=== PATIENT | male | born 1975 | race Hispanic/Latino ===

== ENCOUNTER 2017-08-18 21:38 | Emergency (ER) | payer MEDICARE ==
[2017-08-18 23:04] LABS: APPEARANCE,URINE Cloudy (CLEAR); BILIRUBIN,URINE Negative (NEGATIVE); COLOR,URINE Yellow (YELLOW); GLUCOSE, URINE (UA) Negative (NEGATIVE); KETONES,URINE Negative (NEGATIVE); LEUKOCYTE ESTERASE ,URINE Large (NEGATIVE); NITRATE,URINE Negative (NEGATIVE); OCCULT BLOOD,URINE Large (NEGATIVE); PROTEIN,URINE Trace (NEGATIVE); UROBILINOGEN,URINE 0.2 mg/dL (0.2-1.0)
[2017-08-18 23:15] LABS: BACTERIA,URINE Moderate /HPF (None Seen); MUCUS,URINE Moderate LPF (None Seen); RBC,URINE 26-50 /HPF (0-1); SQUAMOUS EPITHELIAL CELL,UR Few /HPF (0-2); WBC,URINE TNTC /HPF (0-1)
[2017-08-19] MEDS ORDERED: LEVOFLOXACIN 500 MG TABLET ONE (00:16)
== END 2017-08-19 00:23 | disposition home or self-care (01) ==
LOC: EDH 21:38
DX: N39.0 Urinary tract infection, site not specified (principal); R33.9 Retention of urine, unspecified; Q90.9 Down syndrome, unspecified
CPT/HCPCS: 81001; 87088; 87186

== ENCOUNTER 2017-10-17 10:47 | Emergency (ER) | payer MEDICARE ==
[2017-10-17 11:40] LABS: APPEARANCE,URINE Turbid (CLEAR); BILIRUBIN,URINE Negative (NEGATIVE); COLOR,URINE Dark Yellow (YELLOW); GLUCOSE, URINE (UA) Negative (NEGATIVE); KETONES,URINE Negative (NEGATIVE); LEUKOCYTE ESTERASE ,URINE Large (NEGATIVE); NITRATE,URINE Negative (NEGATIVE); OCCULT BLOOD,URINE Large (NEGATIVE); PROTEIN,URINE POS 2+ (NEGATIVE)
[2017-10-17 11:56] LABS: BACTERIA,URINE Many /HPF (None Seen); SQUAMOUS EPITHELIAL CELL,UR Rare /HPF (0-2); WBC,URINE 51-100 /HPF (0-1)
[2017-10-17] MEDS ORDERED: CEFTRIAXONE SODIUM 1 GM ONE (12:07)
[2017-10-17] MEDS ORDERED: LIDOCAINE HCL-MPF 1% 2ML VIAL ONE (12:07)
== END 2017-10-17 13:38 | disposition home or self-care (01) ==
LOC: EDH 10:47
DX: R33.9 Retention of urine, unspecified (principal); N39.0 Urinary tract infection, site not specified; Q90.9 Down syndrome, unspecified; Z90.49 Acquired absence of other specified parts of digestive tract; Z98.890 Other specified postprocedural states
CPT/HCPCS: 81001; 96372; 99283; J0696; J3490

== ENCOUNTER 2018-04-13 06:35 | Emergency (ER) | payer MEDICARE ==
[2018-04-13 07:52] LABS: HEMATOCRIT 42.6 % (42-54); RED BLOOD CELL COUNT(AUTO) 4.25 MIL/uL (4.50-6.20); WHITE BLOOD COUNT (AUTO) 8.6 K/uL (4.8-10.8)
[2018-04-13 07:53] LABS: EOSINOPHILS % (AUTO) 1.7 % (0.0-8.0); LYMPHOCYTES % (AUTO) 38.3 % (21.0-51.0); MEAN CORPUSCULAR HGB CONC 34.9 g/dL (32.0-36.0); MEAN CORPUSCULAR VOLUME 100.2 fL (79-99); MONOCYTES % (AUTO) 6.4 % (3.0-13.0); NEUTROPHILS % (AUTO) 52.6 % (40.0-77.0); PLATELET COUNT (AUTO) 278 K/uL (130-400); RED CELL DISTRIBUTION WIDTH 13.9 % (11.0-15.5)
[2018-04-13 08:05] LABS: CREATININE 0.8 mg/dL (0.5-1.5); POTASSIUM 3.4 mmol/L (3.5-5.1)
[2018-04-13 08:16] LABS: APPEARANCE,URINE CLEAR (CLEAR); BILIRUBIN,URINE NEGATIVE (NEGATIVE); COLOR,URINE YELLOW (YELLOW); GLUCOSE, URINE (UA) NEGATIVE (NEGATIVE); KETONES,URINE NEGATIVE (NEGATIVE); LEUKOCYTE ESTERASE ,URINE SMALL (NEGATIVE); NITRATE,URINE NEGATIVE (NEGATIVE); OCCULT BLOOD,URINE SMALL (NEGATIVE); PROTEIN,URINE NEGATIVE (NEGATIVE); UROBILINOGEN,URINE 0.2 mg/dL (0.2-1.0)
[2018-04-13 08:20] LABS: BACTERIA,URINE Rare /HPF (None Seen); SQUAMOUS EPITHELIAL CELL,UR Few /HPF (0-2)
[2018-04-13] MEDS ORDERED: CEFTRIAXONE SODIUM 1 GM ONE (10:37)
[2018-04-13] MEDS ORDERED: SODIUM CHLORIDE 0.9% 50 ML IV ONE (10:38)
== END 2018-04-13 11:18 | disposition home or self-care (01) ==
LOC: EDH 06:35
DX: N39.0 Urinary tract infection, site not specified (principal); R33.9 Retention of urine, unspecified; Z90.49 Acquired absence of other specified parts of digestive tract
CPT/HCPCS: 36415; 51702; 80048; 81001; 85025; 96374; 99284; J0696

== ENCOUNTER 2018-05-21 10:03 | Observation (INO) | payer MEDICARE ==
[~2018-05-21] VITALS: Ht 147.3 cm; Wt 79.1 kg
[2018-05-21 12:13] LABS: BASOPHILS % (AUTO) 0.6 % (0.0-5.0); EOSINOPHILS % (AUTO) 1.3 % (0.0-8.0); HEMATOCRIT 46.5 % (42-54); LYMPHOCYTES % (AUTO) 21.8 % (21.0-51.0); MEAN CORPUSCULAR HGB CONC 33.9 g/dL (32.0-36.0); MEAN CORPUSCULAR VOLUME 100.1 fL (79-99); MONOCYTES % (AUTO) 5.6 % (3.0-13.0); NEUTROPHILS % (AUTO) 70.7 % (40.0-77.0); NUCLEATED RED BLOOD CELLS 0.2 % (0.0-0.19); PLATELET COUNT (AUTO) 305 K/uL (130-400); RED BLOOD CELL COUNT(AUTO) 4.65 MIL/uL (4.50-6.20); RED CELL DISTRIBUTION WIDTH 14.2 % (11.0-15.5); WHITE BLOOD COUNT (AUTO) 9.8 K/uL (4.8-10.8)
[2018-05-21 12:24] LABS: CREATININE 0.8 mg/dL (0.5-1.5); POTASSIUM 3.3 mmol/L (3.5-5.1)
[2018-05-21 12:29] LABS: ALBUMIN 3.5 g/dL (3.5-5.0); BILIRUBIN,TOTAL 0.5 mg/dL (0.2-1.0); TOTAL PROTEIN, SERUM 9.2 g/dL (6.0-8.3)
[2018-05-21] MEDS ORDERED: 1/2 NORMAL SALINE 1,000 ML IV SCH (12:30)
[2018-05-21] MEDS ORDERED: 1/2 NORMAL SALINE 1,000 ML IV ONE (14:03)
--- NOTE | 2018-05-21 14:20 | NUR ---
REPORT RECEIVED FROM SG REAVES (ED). PATIENT ADMITTED DUE TO C/O ABD PAIN AND URINARY RETENTION. MULTIPLE ATTEMPTS TO INSERT 8FR THORPE CATHETER AND WERE UNSUCCESSFUL. PER JEAN PAUL, PATIENT VOIDED IN BRIEF AFTER CT SCAN. DR. ABRAHAM AWARE OF CONSULT. PATIENT STABLE AT THIS TIME.
[2018-05-21 14:45] VITALS: BP 120/83
[2018-05-21 19:00] VITALS: BP 127/83
[2018-05-21] MEDS: PHENAZOPYRIDINE HCL 200 MG TABLET PO SCH (22:00)
[2018-05-21] MEDS ORDERED: PHENAZOPYRIDINE HCL 200 MG TABLET ONE (23:07)
[2018-05-22] VITALS (25 sets, daily range): BP systolic 83–116; BP diastolic 42–74
[2018-05-22] MEDS: PHENAZOPYRIDINE HCL 200 MG TABLET PO SCH ×3 (06:00→21:54)
[2018-05-22] MEDS ORDERED: IOHEXOL-350 50ML VIAL IV ONE (10:21)
--- NOTE | 2018-05-22 10:35 | NUR ---
POST-VOID RESIDUAL Urinated 200mL of clear, yellow urine and did bladder scan; post-void residual was 437mL.
--- NOTE | 2018-05-22 11:40 | NUR ---
TO OR Taken to OR for cystoscopy.
[2018-05-22] MEDS ORDERED: LACTATED RINGERS 1000ML 1,000 ML IV ONE (11:46)
[2018-05-22] MEDS: CEFAZOLIN SODIUM 1 GM VIAL IVP PRN ×2 (11:50→12:10)
[2018-05-22] MEDS ORDERED: ROCURONIUM 10MG/1ML SYR 10 MG/ML ML ONE (11:58)
[2018-05-22] MEDS ORDERED: FENTANYL CITRATE PF 50 MCG/1 ML 2ML VIAL ONE (11:58)
[2018-05-22] MEDS ORDERED: PROPOFOL 10 MG/ML 20ML VIAL IV ONE ×2 (11:58→12:28)
[2018-05-22] MEDS ORDERED: LIDOCAINE PF 2% 5ML ABBOJECT ONE (11:58)
[2018-05-22] MEDS ORDERED: MIDAZOLAM HCL 1 MG/ML 2ML VIAL ONE (11:58)
[2018-05-22] MEDS ORDERED: EPHEDRINE SULFATE 50 MG/ML AMPULE ONE (12:20)
[2018-05-22] MEDS ORDERED: MEPERIDINE-PF 25 MG/ML SYG ONE (13:12)
[2018-05-22] MEDS ORDERED: CEFAZOLIN SODIUM 1 GM VIAL IVP SCH (17:00)
[2018-05-22] MEDS ORDERED: OXYBUTYNIN 5 MG TAB.SR.24H PO PRN (17:00)
[2018-05-22] MEDS ORDERED: ACETAMINOPHEN-CODEINE 300/30MG TAB PO PRN (17:15)
[2018-05-22] MEDS ORDERED: SODIUM CHLORIDE 0.9% 1000ML 1,000 ML IV SCH (17:15)
[2018-05-22] MEDS ORDERED: ACETAMINOPHEN 325 MG TAB PO PRN (17:15)
[2018-05-22] MEDS ORDERED: NEOMY SULF/BACITRA/POLYMYXIN B 1 EACH PACKET TP ONE ×3 (18:00→22:00)
--- NOTE | 2018-05-22 18:00 | NUR ---
DISCHARGE Paged Dr. Garrett and informed him that Dr. Miller had ordered a follow up consult after discharge and if he would consider this patient for discharge. Dr. Garrett stated to ask Dr. Miller if patient was OK to discharge from urologist's standpoint, and if that was the case, then, yes, patient could be discharged. Paged Dr. Miller to ask him if patient was OK to be discharged from his point of view. He stated that simply because he wrote a follow up order he did not mean he was discharging the patient. Dr. Garrett was notified that Dr. Miller did not OK D/C from his standpoint.
[2018-05-22] MEDS: CEFAZOLIN SODIUM 1 GM VIAL IVP SCH (21:54)
[2018-05-23 03:53] VITALS: BP 84/57
[2018-05-23] MEDS: PHENAZOPYRIDINE HCL 200 MG TABLET PO SCH ×2 (05:26→13:08)
[2018-05-23] MEDS: CEFAZOLIN SODIUM 1 GM VIAL IVP SCH ×2 (05:26→13:08)
[2018-05-23 07:57] VITALS: BP 108/59
[2018-05-23 11:38] VITALS: BP 111/54
--- NOTE | 2018-05-23 13:19 | NUR ---
UROLOGIST Dr. Miller was paged at 1300 to ask him about how many doses of ancef he wants for patient; patient has received total of 3 here and 1 on-call to OR.m Pending for Dr. Miller to call back.
== END 2018-05-23 15:00 | disposition home or self-care (01) ==
LOC: EDH 10:03 → EDHIP 12:19 → 3DH 14:27
PROVIDERS: ADMIT Internal Medicine; ATTEND Internal Medicine
DX: N35.919 Unspecified urethral stricture, male, unspecified site (principal); N13.30 Unspecified hydronephrosis; E66.9 Obesity, unspecified; N48.0 Leukoplakia of penis; Q90.9 Down syndrome, unspecified
CPT/HCPCS: 36415; 52341; 74176; 74430; 80053; 85025; 87088; 96374; 96376; 99284; A4218 ×3; A4344 ×2; A4354; A4358; A4649; A4930; A5113; A9272; C1758; C1769; G0378 ×51; J0690 ×4; J2001; J2175; J2250; J2704 ×2; J3010; J3490; J7120; Q9967

== ENCOUNTER 2024-09-17 12:46 | Emergency (ER) | payer MEDICARE ==
[~2024-09-17] VITALS: Ht 152.4 cm; Wt 72.6 kg
[2024-09-17 13:27] LABS: BASOPHILS # (AUTO) 0.11 K/uL (0.00-0.20); BASOPHILS % (AUTO) 1.4 % (0.0-5.0); EOSINOPHILS # (AUTO) 0.05 K/uL (0.00-0.70); EOSINOPHILS % (AUTO) 0.6 % (0.0-8.0); HEMATOCRIT 43.7 % (42-54); IMMATURE GRANULOCYTE ABSOLUTE 0.02 K/uL (0-1); LYMPHOCYTES # (AUTO) 2.6 K/uL (1.0-4.8); LYMPHOCYTES % (AUTO) 31.6 % (21.0-51.0); MEAN CORPUSCULAR HEMOGLOBIN 35.5 pg (27.0-33.0); MEAN CORPUSCULAR HGB CONC 35.7 g/dL (32.0-36.0); MEAN CORPUSCULAR VOLUME 99.3 fL (79-99); MONOCYTES # (AUTO) 0.5 K/uL (0.1-1.0); MONOCYTES % (AUTO) 5.9 % (3.0-13.0); NEUTROPHILS # (AUTO) 4.9 K/uL (1.8-7.7); NEUTROPHILS % (AUTO) 60.3 % (40.0-77.0); PLATELET COUNT (AUTO) 305 K/uL (130-400); RED CELL DISTRIBUTION WIDTH 13.7 % (11.0-15.5); WHITE BLOOD COUNT (AUTO) 8.1 K/uL (4.8-10.8)
--- NOTE | 2024-09-17 13:44 | NUR ---
BLADDER SCAN SHOWS 371 MLS
[2024-09-17 14:10] LABS: CREATININE 0.9 mg/dL (0.5-1.3); POTASSIUM 3.6 mmol/L (3.5-5.1)
--- NOTE | 2024-09-17 14:45 | ERN ---
General Chief Complaint: Urinary Frequency Stated Complaint: HAVING TROUBLE URINATING Time Seen by MD: 12:47 History of Present Illness Initial Comments 1-year-old male who presents for urinary retention. Patient was history of down syndrome. According to family he was has a history of urinary retention in the past, unclear etiology although he was seen Dr. Miller as an outpatient. Last urination was yesterday. Patient does have some discomfort to the suprapubic area. No lesions. No fevers. No vomiting. No other symptoms. Allergies: Coded Allergies: No Known Drug Allergies (Verified Allergy, Unknown, 05/21/18) Home Meds Active Scripts Clotrimazole (Clotrimazole) 1 % Cream..g., 1 APPL TP BID for 7 Days, #15 GM 0 Refills apply to affected area(s) Prov:CHANTEL JUNE DO 09/17/24 Tamsulosin HCl (Flomax) 0.4 Mg Cap.er.24h, 0.4 MG PO DAILY for 30 Days, #30 CAPSULE. Prov:CHANTEL JUNE DO 09/17/24 Cefpodoxime Proxetil (Cefpodoxime Proxetil) 200 Mg Tablet, 1 TAB PO BID for 7 Days, #14 TAB 0 Refills Prov:CHANTEL JUNE DO 09/17/24 Past Medical History Past Medical History: Arthritis, Heart Disease Medical History Other: DOWN SYNDROME Past Surgical History: None ROS Dictation CONSTITUTIONAL: No chills, no fever, no weakness, no diaphoresis, no malaise. HEAD/FACE: No signs of trauma. EENT: No eye pain, no blurred vision, no tearing, no double vision, no ear pain, no ear discharge, no nose pain, no nasal congestion, no throat pain, no throat swelling, no mouth pain. RESPIRATORY: No cough, no orthopnea, no SOB, no stridor, no wheezing. CARDIOVASCULAR: No chest pain, no edema, no palpitations, no syncope. GASTROINTESTINAL/ABDOMINAL: No abdominal pain, no constipation, no diarrhea, no nausea, no vomiting. GENITOURINARY: Urinary retention MUSCULOSKELETAL: No back pain, no gout, no joint pain, no joint swelling, no muscle pain, no muscle stiffness, no neck pain. INTEGUMENTARY: No change in color, no change in hair/nails, no dryness, no lesion, no lumps, no rash. NEUROLOGICAL/PSYCH: No anxiety, not depressed, no emotional problem, no headache, no numbness, no pre-existing deficit, no history of seizures, no tremors, no weakness. HEMATOLOGIC/LYMPHATIC: Not anemic, no history of blood clots, no apparent bleeding, no bruising, glands not swollen. All Systems Negative, Except as Noted. Physical Exam Physical Exam Dictation VITAL SIGNS: Reviewed. GENERAL APPEARANCE: Alert, oriented x3, mild distress due to needing to use the restroom HEAD AND FACE: Non-traumatic. EYES: PERRL, pink conjunctivas, eyelid no trauma, anterior chamber clear. EARS: Pinnas intact and no signs of trauma or erythema. Ear canals clear and no discharge. TMs no erythema. NOSE: No discharge, no bleeding. OROPHARYNX: Mouth normal, teeth no caries, tongue pink. Pharynx clear, no erythema. Tonsils no exudates, no abscesses noted. Mucous membrane moist. NECK: Supple, non-tender, no thyromegaly, no masses, no JVD, no bruits. BREAST: Deferred. CHEST: No tenderness, no crepitus, no paradoxical movement, no retractions. LUNGS: Clear, well-ventilated, symmetric, no rales, no wheezing, no rhonchi, no stridor, good breath sounds bilaterally. HEART: Regular rate, regular rhythm, no murmur, no gallops. VASCULAR: No peripheral edema. ABDOMEN: Soft, positive bowel sounds, nondistended, no guarding, nontender, no rebound, no masses no hepatomegaly, no splenomegaly, no Sabillon's sign, no hernias. RECTAL: Deferred. GENITAL: Deferred. NEUROLOGICAL: Normal speech, gross motor function intact, gross sensory function intact. MUSCULOSKELETAL: Neck nontender, full range of motion, back nontender, full range of motion. EXTREMITIES: Nontender, full range of motion. SKIN: Color pink, dry, no turgor, no rash, no lacerations, no abrasions, no contusions. LYMPHATICS: Deferred. Results Laboratory and Microbiology Lab and Micro Result Laboratory Tests Test 09/17/24 13:21 09/17/24 15:10 White Blood Count 8.1 K/uL (4.8-10.8) Red Blood Count 4.40 MIL/uL (4.50-6.20) L Hemoglobin 15.6 g/dL (14.0-18.0) Hematocrit 43.7 % (42-54) Mean Corpuscular Volume 99.3 fL (79-99) H Mean Corpuscular Hemoglobin 35.5 pg (27.0-33.0) H Mean Corpuscular Hemoglobin Concent 35.7 g/dL (32.0-36.0) Red Cell Distribution Width 13.7 % (11.0-15.5) Platelet Count 305 K/uL (130-400) Mean Platelet Volume 9.8 fL (7.5-10.5) Immature Granulocyte % (Auto) 0.2 % (0-1) Neutrophils (%) (Auto) 60.3 % (40.0-77.0) Lymphocytes (%) (Auto) 31.6 % (21.0-51.0) Monocytes (%) (Auto) 5.9 % (3.0-13.0) Eosinophils (%) (Auto) 0.6 % (0.0-8.0) Basophils (%) (Auto) 1.4 % (0.0-5.0) Neutrophils # (Auto) 4.9 K/uL (1.8-7.7) Lymphocytes # (Auto) 2.6 K/uL (1.0-4.8) Monocytes # (Auto) 0.5 K/uL (0.1-1.0) Eosinophils # (Auto) 0.05 K/uL (0.00-0.70) Basophils # (Auto) 0.11 K/uL (0.00-0.20) Absolute Immature Granulocyte (auto 0.02 K/uL (0-1) Nucleated Red Blood Cells 0.0 % (0.0-0.19) Sodium Level 136 mmol/L (136-145) Potassium Level 3.6 mmol/L (3.5-5.1) Chloride Level 100 mmol/L (101-111) L Carbon Dioxide Level 29 mmol/L (21-32) Blood Urea Nitrogen 14 mg/dL (7-18) Creatinine 0.9 mg/dL (0.5-1.3) Glomerular Filtration Rate Calc 104 mL/min (>90) Random Glucose 115 mg/dL (70-105) H Total Calcium 8.8 mg/dL (8.5-10.1) Urine Color LIGHT-YELLOW (YELLOW) Urine Appearance CLOUDY (CLEAR) H Urine pH 6.5 (5.0-8.0) Urine Specific [place] 1.011 (1.001-1.031) Urine Protein 30 mg/dL (NEGATIVE) H Urine Glucose (UA) NEGATIVE mg/dL (NEGATIVE) Urine Ketones NEGATIVE mg/dL (NEGATIVE) Urine Occult Blood SMALL (NEGATIVE) H Urine Nitrate 2+ (NEGATIVE) H Urine Bilirubin NEGATIVE mg/dL (NEGATIVE) Urine Urobilinogen 0.2 mg/dL (0.2-1.0) Urine Leukocyte Esterase 500 Brianna/uL (NEGATIVE) H Urine RBC 6-10 /HPF (0-1) H Urine WBC TNTC /HPF (0-1) H Urine Bacteria RARE /HPF (None Seen) Urine Yeast RARE /HPF (None Seen) MDM CC: Urinary retention Historian: Patient Comorbidities: History of urinary retention unknown if BPH versus stricture Limitations by social determinants of health: None Differential diagnosis: BPH, stricture, urinary retention, CINDY, electrolyte abnormalities, UTI, other. Initial presentation shows heart rate of 110 otherwise unremarkable vital signs. Patient was clinically uncomfortable due to the retention. He had tried to urinate multiple times but only dribbles come out. No fevers or systemic symptoms. Low suspicion for any life threats Nurse performed a bedside bladder scan patient was has around 400 mL of urine. Granados catheter was placed. According to the nurses they were only able to get a small eight [place] without a balloon. It was taped and the patient drained about 500 cc of urine. He reports he immediately relief. Labs (independently ordered and interpreted by me ): CBC is normal. Urinalysis shows nitrites occult blood leuk esterase. Consistent with infection. Chemistries unremarkable including renal function. Patient was improvement of symptoms. No signs of SIRS or sepsis. No CINDY. Treatment in ED: Granados catheter placement, oral cefdinir. Plan: We will be the Granados catheter in place recommend PCP or urologic follow up. Due to the UTI we will start on cefpodoxime. We will also start on tamsulo sin. We will also give clotrimazole cream. The distal tip of the penis since there may be some irritation there. ED Course Orders Procedure Category Date Status Time Cbc With Differential LAB 09/17/24 Complete 12:47 Basic Metabolic Panel LAB 09/17/24 Complete 12:47 Urinalysis Profile LAB 09/17/24 Complete 12:47 *Nursing CPOE 09/17/24 Transmitted Communication: 13:24 Nurse Driven Granados NIR 09/17/24 Complete Removal Pro 14:26 *Nursing CPOE 09/17/24 Transmitted Communication: 14:26 Culture Urine BRYAN 09/17/24 Complete 15:38 Cefdinir (Cefdinir) PHA 09/17/24 Complete 17:30 Cefdinir (Cefdinir) PHA 09/17/24 Complete 18:00 Current Medications Medications (Trade) Dose Ordered Sig/Ifeoma Route PRN Reason Start Time Stop Time Status Last Admin Dose Admin Cefdinir (Cefdinir) 250 mg ONCE PO 09/17/24 17:30 09/17/24 17:30 DC Cefdinir (Cefdinir) 250MG=5ML ONCE PO 09/17/24 18:00 09/17/24 17:51 DC 09/17/24 17:42 Vital Signs Date Time Temp Pulse Resp B/P (MAP) Pulse Ox O2 Delivery O2 Flow Rate FiO2 09/17/24 17:48 98.4 92 18 132/74 96 Room Air* 0 21 09/17/24 13:00 98.4 110 16 140/83 96 Room Air 0 DX & DISP Disposition: Discharge Departure Impression: Primary Impression: Urinary retention Additional Impression: UTI (urinary tract infection) Condition: Stable Scripts Clotrimazole (Clotrimazole) 1 % Cream..g. 1 APPL TP BID for 7 Days, #15 GM 0 Refills apply to affected area(s) Prov: CHANTEL JUNE DO 09/17/24 Tamsulosin HCl (Flomax) 0.4 Mg Cap.er.24h 0.4 MG PO DAILY for 30 Days, #30 CAPSULE. Prov: CHANTEL JUNE DO 09/17/24 Cefpodoxime Proxetil (Cefpodoxime Proxetil) 200 Mg Tablet 1 TAB PO BID for 7 Days, #14 TAB 0 Refills Prov: CHANTEL JUNE DO 09/17/24 Additional Instructions: Daniel has bacteria in his urine. He also had urinary retention. As we discussed, he has a 8F Granados placed. This should stay in place for at least 1-2 weeks while he takes the medicines that I have prescribed. I have prescribed cefpodoxime, which is an antibiotic. Please take as pres cribed. I have prescribed clotrimazole cream. He should apply this two or 3 times a day to the distal tip of his penis around the Granados catheter. I have also prescribed tamsulosin, which is for enlarged prostate. He should take this every night for the next 2-4 weeks. As we discussed, this may not be the best fitting Granados catheter. He may need replacement. Please return to the emergency department if he needs Granados replacement. He should follow up with his primary doctor for follow up. He may also need to see a urologist. Referrals: ROEL BUSH MD (PCP) CHANTEL JUNE DO September 17, 2024 14:45
[2024-09-17 15:21] LABS: APPEARANCE,URINE CLOUDY (CLEAR); BILIRUBIN,URINE NEGATIVE (NEGATIVE); COLOR,URINE LIGHT-YELLOW (YELLOW); GLUCOSE, URINE (UA) NEGATIVE (NEGATIVE); KETONES,URINE NEGATIVE (NEGATIVE); LEUKOCYTE ESTERASE ,URINE 500 Leu/uL (NEGATIVE); NITRATE,URINE 2+ (NEGATIVE); OCCULT BLOOD,URINE SMALL (NEGATIVE); PH,URINE 6.5 (5.0-8.0); PROTEIN,URINE 30 mg/dL (NEGATIVE); UROBILINOGEN,URINE 0.2 mg/dL (0.2-1.0)
--- NOTE | 2024-09-17 15:22 | NUR ---
525 MLS OUT W/ IN/OUT THORPE INSERTION, DR JUNE AWARE
[2024-09-17 15:38] LABS: ADD UA MICROSCOPIC YES
[2024-09-17 15:40] LABS: BACTERIA,URINE RARE /HPF (None Seen); MUCUS,URINE RARE LPF (None Seen); WBC,URINE TNTC /HPF (0-1); YEAST,URINE BUDDING RARE /HPF (None Seen)
--- NOTE | 2024-09-17 16:14 | NUR ---
IN/OUT CATH IN PLACE AND RAINING TO GRAVITY, ATTACHED TO LEG BAG VIA 8 YI THORPE CATH, URINE IS MOVING INTO BAG, FAMILY EDUCATED ON LEG BAG EMPTYING AND CATH CARE, NO SIGNS OF BLOOD OR SEDIMENTATION, PT TOLERATED PROCEDURE WELL AND VERBALIZES RELIEF
--- NOTE | 2024-09-17 16:27 | NUR ---
DR JUNE MADE AWARE OF THORPE INSERTION AND STATED PROCEDURE WILL PERFORM NEEDED URINE DRAINAGE
[2024-09-17] MEDS ORDERED: TAMS-55 PO (16:36)
[2024-09-17] MEDS ORDERED: CLOT15CR23 TP (16:36)
[2024-09-17] MEDS ORDERED: CEFP200T14 PO (16:36)
[2024-09-17] MEDS ORDERED: CEFDINIR 250MG/5ML 60ML BOTTLE PO SCH (17:30)
[2024-09-17] MEDS: CEFDINIR 250MG/5ML 60ML BOTTLE PO SCH (17:42)
[2024-09-17 17:48] VITALS: BP 132/74; PULSE 92; RESP 18; TEMP 98.4; O2SAT 96
== END 2024-09-17 17:50 | disposition home or self-care (01) ==
LOC: EDH 12:46
DX: N39.0 Urinary tract infection, site not specified (principal); R33.9 Retention of urine, unspecified; M19.90 Unspecified osteoarthritis, unspecified site; Z79.899 Other long term (current) drug therapy
CPT/HCPCS: 36415; 80048; 81001; 85025; 87086; 87186; 99283